=== PATIENT | male | born 1950 | race Caucasian/White ===

== ENCOUNTER → 2018-03-16 15:03 | Outpatient (REF) | payer MEDICARE, MEDICAID, SELFPAY ==
[2018-03-19 15:26] LABS: 6-monoacetylmorphine Not Detected ng/mL (Cutoff: 25); Amphetamines Negative ng/mL (Cutoff: 500); Barbiturates Negative ng/mL (Cutoff: 200); Benzodiazepines Negative ng/mL (Cutoff: 100); Buprenorphine Not Detected ng/mL (Cutoff: 5); Cocaine Negative ng/mL (Cutoff: 150); Codeine Not Detected ng/mL (Cutoff: 25); Comment Normal; Creatinine, U 248.7 mg/dL; Dihydrocodeine Not Detected ng/mL (Cutoff: 25); EDDP Not Detected ng/mL (Cutoff: 25); Fentanyl Not Detected ng/mL (Cutoff: 2); Hydrocodone Not Detected ng/mL (Cutoff: 25); Hydromorphone Not Detected ng/mL (Cutoff: 25); Hydromorphone-3-beta-glucuroni Not Detected ng/mL (Cutoff: 100); Meperidine Not Detected ng/mL (Cutoff: 25); Methadone Not Detected ng/mL (Cutoff: 25); Morphine Not Detected ng/mL (Cutoff: 25); N-desmethyltapentadol Not Detected ng/mL (Cutoff: 50); Naloxone Not Detected ng/mL (Cutoff: 25); Norbuprenorphine Not Detected ng/mL (Cutoff: 5); Norfentanyl Not Detected ng/mL (Cutoff: 2); Norhydrocodone Not Detected ng/mL (Cutoff: 25); Normeperidine Not Detected ng/mL (Cutoff: 25); Noroxycodone Not Detected ng/mL (Cutoff: 25); Noroxymorphone Not Detected ng/mL (Cutoff: 25); O-desmethyltramadol Not Detected ng/mL (Cutoff: 25); Phencyclidine Negative ng/mL (Cutoff: 25); Propoxyphene Not Detected ng/mL (Cutoff: 25); Specific Gravity 1.007; Tapentadol Not Detected ng/mL (Cutoff: 25); Tetrahydrocannabinol Presumptive Positive ng/mL (Cutoff: 50); Tramadol Not Detected ng/mL (Cutoff: 25); pH 7.5
[2018-03-19 15:48] LABS: Carboxy-THC Interpretation Positive.; Delta-9 CarboxyThc by LC-MS/MS 173 ng/mL (Cutoff:<3)
== END ==
LOC: LBN 15:03
PROVIDERS: PCP Family Medicine; Visit Provider Nurse Practitioner Family
DX: Z79.899 Other long term (current) drug therapy (principal); F12.20 Cannabis dependence, uncomplicated; G89.29 Other chronic pain
CPT/HCPCS: 80307; 80349; 80364

== ENCOUNTER 2019-04-02 09:13 | Outpatient (REF) | payer MEDICARE, MEDICAID, SELFPAY ==
[2019-04-02 20:01] LABS: ALT 22 U/L (16-63); AST 20 U/L (15-37); Alkaline Phosphatase 70 U/L (46-116); Anion Gap 8.6 mmol/L (3-11); BUN 8 mg/dL (7-18); Bilirubin, Total 0.5 mg/dL (0.2-1.0); CO2 31.4 mmol/L (21.0-32.0); CREATININE 0.91 mg/dL (0.70-1.30); Calcium 9.2 mg/dL (8.5-10.1); Chloride 103 mmol/L (98-107); Glucose 93 mg/dL (70-100); Potassium 4.3 mmol/L (3.5-5.1); Sodium 143 mmol/L (136-145); TSH (W/Ref FT4) 2.58 uIU/mL (0.36-3.74); Total Protein 7.8 g/dL (6.4-8.2); Vitamin B12 691 pg/mL (193-986)
== END 2019-04-02 09:33 ==
LOC: NCHCN 09:13
PROVIDERS: PCP Family Medicine; Visit Provider Family Medicine
DX: E03.9 Hypothyroidism, unspecified (principal); G62.9 Polyneuropathy, unspecified; R26.9 Unspecified abnormalities of gait and mobility; F10.20 Alcohol dependence, uncomplicated
CPT/HCPCS: 80053; 82607; 84443

== ENCOUNTER 2020-05-23 12:40 | Outpatient (REF) | payer MEDICARE, MEDICAID, SELFPAY ==
[2020-05-23 20:57] LABS: ALT 42 U/L (16-63); AST 25 U/L (15-37); Albumin 3.9 g/dL (3.4-5.0); Alkaline Phosphatase 48 U/L (46-116); Anion Gap 6.2 mmol/L (3-11); BUN 15 mg/dL (7-18); Bilirubin, Total 0.3 mg/dL (0.2-1.0); CO2 29.8 mmol/L (21.0-32.0); CREATININE 0.78 mg/dL (0.70-1.30); Chloride 106 mmol/L (98-107); Glucose 116 mg/dL (74-106); Potassium 4.2 mmol/L (3.5-5.1); Sodium 142 mmol/L (136-145); TSH (W/Ref FT4) 2.78 uIU/mL (0.36-3.74); Total Protein 7.1 g/dL (6.4-8.2)
[2020-05-24 21:33] LABS: PSA, Screening 0.9 ng/mL (0.0-6.5)
== END 2020-05-23 13:00 ==
LOC: NCHCN 12:40
PROVIDERS: PCP Family Medicine; Visit Provider Family Medicine
DX: E03.9 Hypothyroidism, unspecified (principal); F10.20 Alcohol dependence, uncomplicated; Z12.5 Encounter for screening for malignant neoplasm of prostate
CPT/HCPCS: 80053; 84153; 84402; 84403; 84443

== ENCOUNTER 2021-05-31 16:18 | Outpatient (REF) | payer MEDICARE, MEDICAID, SELFPAY ==
[2021-05-31 15:25] LABS: ALT 27 U/L (16-63); AST 22 U/L (15-37); Albumin 4.5 g/dL (3.4-5.0); Alkaline Phosphatase 49 U/L (46-116); Anion Gap 9.9 mmol/L (3-11); BUN 11 mg/dL (7-18); Bilirubin, Total 0.5 mg/dL (0.2-1.0); CO2 29.1 mmol/L (21.0-32.0); CREATININE 0.8 mg/dL (0.70-1.30); Calcium 9.7 mg/dL (8.5-10.1); Chloride 105 mmol/L (98-107); Glucose 106 mg/dL (74-106); Potassium 4.2 mmol/L (3.5-5.1); Sodium 144 mmol/L (136-145); TSH (W/Ref FT4) 1.79 uIU/mL (0.36-3.74)
== END 2021-05-31 16:19 | disposition home or self-care (01) ==
LOC: NCHCN 16:18
PROVIDERS: PCP Family Medicine; Visit Provider Family Medicine
DX: I10 Essential (primary) hypertension (principal); E03.9 Hypothyroidism, unspecified
CPT/HCPCS: 80053; 84443

== ENCOUNTER 2022-02-28 13:17 | Outpatient (REF) | payer OTHER, MEDICAID, SELFPAY ==
[2022-02-28 16:07] LABS: ALT 38 U/L (16-63); AST 26 U/L (15-37); Albumin 4.5 g/dL (3.4-5.0); Alkaline Phosphatase 50 U/L (46-116); Anion Gap 9.9 mmol/L (3-11); BUN 14 mg/dL (7-18); Bilirubin, Total 0.4 mg/dL (0.2-1.0); CO2 27.1 mmol/L (21.0-32.0); Calcium 9.5 mg/dL (8.5-10.1); Chloride 105 mmol/L (98-107); Cholesterol 319 mg/dL (<200); Glucose 115 mg/dL (74-106); Sodium 142 mmol/L (136-145); TSH (W/Ref FT4) 2.52 uIU/mL (0.36-3.74); Total Protein 8.2 g/dL (6.4-8.2); Triglyceride 100 mg/dL (<150)
[2022-02-28 16:18] LABS: Calculated LDL 223 mg/dL (<100); HDL Cholesterol 76 mg/dL (40-60)
[2022-03-01 18:24] LABS: PSA, Screening 0.6 ng/mL (<=6.5)
== END 2022-02-28 13:18 | disposition home or self-care (01) ==
LOC: NCHCN 13:17
PROVIDERS: PCP Family Medicine; Visit Provider Family Medicine
DX: E03.9 Hypothyroidism, unspecified (principal); E78.5 Hyperlipidemia, unspecified; I10 Essential (primary) hypertension; Z12.5 Encounter for screening for malignant neoplasm of prostate
CPT/HCPCS: 80053; 80061; 84153; 84443

== ENCOUNTER 2022-03-01 09:57 | Emergency (ER) | payer OTHER, MEDICAID, SELFPAY ==
[2022-03-01 10:13] VITALS: BP 168/90; PULSE 79; RESP 14; TEMP 37.1; O2SAT 97
--- NOTE | 2022-03-01 10:33 | ED.GENADUL_ITS ---
Discharge Plan Disposition Patient Disposition: HOME Condition: Improving Discharge Details Chief Complaint: Laceration Clinical Impression: Finger laceration Primary Care Provider: Alexus Medellin V ED Provider: Santino Castillo Home Meds and New Rx's Prescriptions: No Action venlafaxine [Effexor XR] 75 MG capsule,extended release 24hr 75 mg PO DAILY atenolol-chlorthalidone 1 EACH tablet 1 tab PO DAILY venlafaxine [Effexor XR] 150 MG capsule,extended release 24hr 150 mg PO DAILY thiamine HCl (vitamin B1) 100 MG tablet 100 mg PO DAILY levothyroxine [Synthroid] 25 MCG tablet 25 mcg PO DAILY nicotine (polacrilex) [Nicorette] 4 MG gum 4 mg Buccal PRN triamcinolone acetonide 80 GM ointment 80 gm Topical BID Label Comments: 0.1% External ointment. Apply to affected area BID fluticasone propionate 16 GM spray,suspension 50 mcg NS BID Label Comments: One [place] in each nostril BID ezetimibe [Zetia] 10 MG tablet 10 mg PO DAILY Nicotine [Nicoderm Cq] 1 EACH PATCH.TD24 7 mg Transdermal DAILY atenolol 25 mg tablet 1 tab PO DAILY Label Comments: TAKE 1 TABLET BY MOUTH EVERY EVENING escitalopram oxalate 10 mg tablet Label Comments: TAKE 1 TABLET BY MOUTH EVERY NIGHT AT BEDTIME thiamine mononitrate (vit B1) [Vitamin B-1 (mononitrate)] 100 mg tablet 1 tab PO DAILY Label Comments: TAKE ONE TABLET BY MOUTH ONCE DAILY Discharge Instructions Instructions: Finger Laceration (ED) Additional Instructions: Please keep wound clean and dry. Please return if you have any signs of worsening bleeding or signs of infection such as pus drainage redness fever or other abnormal symptoms Medical Decision Making 71-year-old male presents after lacerating his right index finger with a circular saw yesterday, this happened around 2 PM yesterday so patient is less than 24 hours out from injury, patient washed the wound and wrapped it at home; tetanus up-to-date within the last day. Wound is hemostatic no foreign body. Proximal and distal flexion intact, extension intact, sensation capillary refill intact. No evidence of active infection. Will anesthetized with digital block will irrigate wound and closed with absorbable sutures. Home care instructions return precautions given. No evidence of vascular neurologic tendonous or bony involvement 11: 17 patient is comfortably no acute distress. Digital block performed with 1% lidocaine, tourniquet applied, wound irrigated and explored, no foreign bodies, 2 simple interrupted sutures in the larger laceration, most distal laceration is more of a maceration/avulsion has been left open to heal by secondary intent. Home care instructions and return precautions given. HPI General Date/Time Provider Initiated Documentation: 03/01/22 10:17 . HPI Narrative: 71-year-old male presents after cutting his finger accidentally with a circular saw while performing some home renovations, 2 lacerations to pointer finger of his right hand. Patient had a tetanus shot yesterday prior to this event. Patient wrapped his finger for hemostasis and went to bed last night noticed that he had a large laceration Related Data Home Medications Medication Instructions Recorded Confirmed Nicotine [Nicoderm Cq] 7 mg transdermal DAILY 03/12/18 atenolol 50 mg-chlorthalidone 25 1 tab PO DAILY 03/12/18 03/01/22 mg tablet ezetimibe 10 mg tablet (Zetia) 10 mg PO DAILY 03/12/18 03/01/22 fluticasone propionate 50 50 mcg NS BID 03/12/18 mcg/actuation nasal spray,suspension levothyroxine 25 mcg tablet 25 mcg PO DAILY 03/12/18 03/01/22 (Synthroid) nicotine (polacrilex) 4 mg gum 4 mg buccal PRN 03/12/18 (Nicorette) thiamine HCl (vitamin B1) 100 mg 100 mg PO DAILY 03/12/18 tablet triamcinolone acetonide 0.025 % 80 gm topical BID 03/12/18 topical ointment venlafaxine 150 mg 150 mg PO DAILY 03/12/18 capsule,extended release 24 hr (Effexor XR) venlafaxine 75 mg capsule,extended 75 mg PO DAILY 03/12/18 release 24 hr (Effexor XR) atenolol 25 mg tablet 1 tab PO DAILY 03/01/22 03/01/22 escitalopram oxalate 10 mg tablet tab 03/01/22 03/01/22 thiamine mononitrate (vit B1) 100 1 tab PO DAILY 03/01/22 03/01/22 mg tablet (Vitamin B-1 (mononitrate)) Allergies Allergy/AdvReac Type Severity Reaction Status Date / Time atorvastatin calcium Allergy Intermediate Unverified 03/01/22 10:35 [From Lipitor] bupropion HCl Allergy Mild Unverified 03/01/22 10:35 [From Wellbutrin] fluoxetine HCl [From Prozac] Allergy Mild Unverified 03/01/22 10:35 paroxetine HCl [From Paxil] Allergy Mild Unverified 03/01/22 10:35 sertraline HCl [From Zoloft] Allergy Mild Unverified 03/01/22 10:35 simvastatin [From Zocor] Allergy Mild Unverified 03/01/22 10:35 General Stated Complaint: Laceration ANAMIKA: 4 Review of Systems Narrative: Review of Systems Constitutional: negative Eyes: negative ENT: negative Cardiovascular: negative Respiratory: negative Gastrointestinal: negative : negative Musculoskeletal: negative Skin: Finger laceration Neurologic: negative Psych: negative PFSH All Active Problems (Updated 03/01/22 @ 11:19 by Santino Castillo MD) Finger laceration (Acute) Medical History (Updated 03/01/22 @ 11:19 by Santino Castillo MD) Arthralgia Ataxia Depression Ego-dystonic sexual orientation Elevated TSH ETOHism Gait disturbance History of tobacco use HTN (hypertension) Hyperlipidemia Hypothyroidism Mood disorder Pectus excavatum Scoliosis Shoulder dislocation Skin lesion Sleep apnea Family History Mother Alzheimers disease Arthritis Hyperlipidemia Mental disorder Breast cancer Father Diabetes Lung cancer Other Alcohol abuse Heart disease Social History Smoking/Tobacco Use Status: Current every day Tobacco Type: smokeless tobacco Smoking risk assessment performed?: Yes Alcohol Intake: current Alcohol Intake frequency: 3 or more drinks per day Alcohol type: beer Drug use: Never Do you feel safe at home: Yes Do you feel safe in your relationship?: Yes Exam Narrative Exam Narrative: Physical Examination General: alert, awake, cooperative, resting comfortably, no acute distress HEENT: normocephalic, atraumatic; PERRL, EOM intact, conjunctiva normal; no nasal discharge; moist mucous membranes, oral and pharyngeal mucosa normal, tolerating secretions Neck: supple, trachea midline; full ROM Chest: normal to inspection Respiratory: normal respiratory effort, speaking in full sentences, clear to auscultation, no wheezing, rales or rhonchi Cardiac: regular rate, regular rhythm, S1S2 intact, no murmurs rubs or gallops GI: abdomen soft, non-tender, non-distended; no palpable mass or hepatosplenomegaly Skin: no lesions, rashes or trauma appreciated Neuro: AAOx3, normal speech, moving all extremities Extremities: right hand: 2 cm gaping laceration to index finger hemostatic no foreign body, no evidence of tendon or vascular or neurologic structure involvement, patient has full flexion both proximally and distally as well as full extension, sensation intact and capillary refill intact. Smaller sub cm non gaping laceration to distal tip Psych: Appropriate mood and affect Course Vital Signs Vital signs: Vital Signs Temperature 37.1 C 03/01/22 10:13 Pulse 79 03/01/22 10:13 Respiratory Rate 14 03/01/22 10:13 Blood Pressure 168/90 H 03/01/22 10:13 Pulse Oximetry 97 03/01/22 10:13 Temperature 37.1 C 03/01/22 10:13 Temperature Source Temporal Artery Scan 03/01/22 10:13 Pulse 79 03/01/22 10:13 Respiratory Rate 14 03/01/22 10:13 Respiratory Effort Non-Labored 03/01/22 10:17 Blood Pressure 168/90 H 03/01/22 10:13 Blood Pressure Position Sitting 03/01/22 10:13 Pulse Oximetry 97 03/01/22 10:13 Oxygen Delivery Method Room Air 03/01/22 10:13 Oxygen Flow Rate 0 03/01/22 10:13 Pain Level 1 03/01/22 10:13 Procedures Laceration Laceration 1: Side (If applicable): right Size (cm): 2 Description: linear Depth: simple, single layer Local Anesthetic: Lidocaine 1% Amount of anesthesia used (mL): 2 Pre-repair: irrigated extensively and deep structures intact Skin layer closed with: vicryl Size (cm): 5-0 Number of sutures: 2 Technique: simple, interrupted Subcutaneous layer closed with: vicryl Technique: other (Most distal laceration subcentimeter in size is more of a maceration was left open to heal by secondary intent) PAWSS Have you Been Recently Intoxicated or Drunk Within the Last 30 days?: Yes Have you Ever Experienced Previous Episodes of Alcohol Withdrawal?: Yes Have you ever Experienced Withdrawal Seizures?: Yes Have you ever Experienced Delirium Tremens(DT)s?: Yes Have you ever undergone Alcohol Rehabilitation Treatment (i.e, inpt ot ou tpatient treatment programs)?: Yes Have you ever Experienced Blackouts?: No Have you ever Combined Alcohol with other Downers within the last 90 days?: No Have you ever Combined Alcohol with any other Substance of Abuse during the last 90 days?: No Positive Blood Alcohol level on Presentation? [PCS.BAL]: No Evidence of Increased Autonomic Activity (i.e. HR>120, tremor, sweating, agitation, nausea)?: No Result: 5
== END 2022-03-01 11:25 | disposition home or self-care (01) ==
PROVIDERS: Emergency Provider Emergency Medicine; PCP Family Medicine
DX: S61.210A Laceration without foreign body of right index finger without damage to nail, initial encounter (principal); I10 Essential (primary) hypertension; F17.290 Nicotine dependence, other tobacco product, uncomplicated; W31.2XXA Contact with powered woodworking and forming machines, initial encounter; Y92.009 Unspecified place in unspecified non-institutional (private) residence as the place of occurrence of the external cause
CPT/HCPCS: 12001; 99281; 99282

== ENCOUNTER 2023-03-06 13:17 | Outpatient (REF) | payer OTHER, MEDICAID, SELFPAY ==
[2023-03-06 15:55] LABS: HCT 40.4 % (40.0-50.0); HGB 13.6 g/dL (13.5-17.5); MCHC 33.7 % (32.0-36.0); MCV 98 fL (80-95); Platelet Count 229 10^3/uL (130-400); RBC 4.12 10^6/uL (4.36-5.78); RDW 12.6 % (11.8-14.1); RDW-SD 45.4 fL; WBC 6.05 10^3/uL (4.4-10.8)
[2023-03-06 17:03] LABS: ALT 44 U/L (16-63); AST 29 U/L (15-37); Albumin 4.2 g/dL (3.4-5.0); Alkaline Phosphatase 67 U/L (46-116); BUN 7 mg/dL (7-18); Bilirubin, Total 0.5 mg/dL (0.2-1.0); CREATININE 0.9 mg/dL (0.70-1.30); Calcium 9.7 mg/dL (8.5-10.1); Calculated LDL 196 mg/dL (<100); Chloride 104 mmol/L (98-107); Cholesterol 295 mg/dL (<200); Estimated GFR 90.18 (mL/min/1.73m2); Glucose 104 mg/dL (74-106); HDL Cholesterol 53 mg/dL (40-60); Potassium 4.5 mmol/L (3.5-5.1); Sodium 141 mmol/L (136-145); TSH (W/Ref FT4) 2.83 uIU/mL (0.36-3.74); Total Protein 8.3 g/dL (6.4-8.2); Triglyceride 230 mg/dL (<150); Vitamin B12 625 pg/mL (193-986)
[2023-03-06 17:12] LABS: Hemoglobin A1C 5.4 % (<5.7)
== END 2023-03-06 13:18 | disposition home or self-care (01) ==
LOC: NCHCN 13:17
PROVIDERS: PCP Family Medicine; Visit Provider Family Medicine
DX: E03.9 Hypothyroidism, unspecified (principal); E78.5 Hyperlipidemia, unspecified; I10 Essential (primary) hypertension; F10.20 Alcohol dependence, uncomplicated; Z79.899 Other long term (current) drug therapy
CPT/HCPCS: 80053; 80061; 85027; 82607; 83036; 84443

== ENCOUNTER 2023-07-04 15:41 | Outpatient (REF) | payer OTHER, MEDICAID, SELFPAY ==
[2023-07-04 15:23] LABS: AST 31 U/L (15-37); Calculated LDL 160 mg/dL (<100); Cholesterol 258 mg/dL (<200); HDL Cholesterol 61 mg/dL (40-60); Triglyceride 187 mg/dL (<150)
[2023-07-04 16:03] LABS: Creatine Kinase 148 U/L (39-308)
[2023-07-06 23:35] LABS: Anaplasma phagocytophilum Negative (Negative); B. miyamotoi PCR Negative (Negative); Babesia divergens/MO-1 Negative (Negative); Babesia duncani Negative (Negative); Babesia microti Negative (Negative); Ehrlichia chaffeensis Negative (Negative); Ehrlichia ewingii/canis Negative (Negative); Ehrlichia muris eauclairensis Negative (Negative)
[2023-07-07 10:21] LABS: Lyme Ab w Rflx to Lyme Confirm Negative (Negative)
== END 2023-07-04 15:42 | disposition home or self-care (01) ==
LOC: NCHCN 15:41
PROVIDERS: PCP Family Medicine; Visit Provider Family Medicine
DX: E78.5 Hyperlipidemia, unspecified (principal); I10 Essential (primary) hypertension; L98.8 Other specified disorders of the skin and subcutaneous tissue
CPT/HCPCS: 80061; 82550; 87798; 84450; 86618

== ENCOUNTER → 2023-10-23 14:35 | Outpatient (CLI) | payer OTHER, MEDICAID, SELFPAY ==
--- NOTE | 2023-10-23 | DI.RAD_ITS ---
Exam(s) XR LUMBAR SPINE COMPLETE EXAM: XR LUMBAR SPINE COMPLETE CLINICAL HISTORY: LOW BACK PAIN M54.50 PAIN MOSTLY OVER THE RSI JOINT. TECHNIQUE: 2D digital imaging was performed. Five views. COMPARISON: No exams were available for comparison FINDINGS: BONES: No fracture or destructive lesion. Vertebral body heights are maintained. Facet degenerative changes noted at L4-5 and L5-S1. Mild spurring at the SI joints. No evidence of widening or bony er osions. DISKS: Intervertebral disc spaces are maintained. Endplate osteophytes greater in the lower thoracic region. ALIGNMENT: Mild dextroscoliosis in lumbar region. Levoscoliosis noted at the thoracolumbar junction. SOFT TISSUE: Normal. IMPRESSION: Mild degenerative changes. DATA REPOSITORY: RADIATION DOSE DELIVERED:
== END ==
PROVIDERS: PCP Family Medicine; Visit Provider Physician Assistant Medical
DX: M46.96 Unspecified inflammatory spondylopathy, lumbar region (principal)
CPT/HCPCS: 72110

== ENCOUNTER 2024-01-16 12:27 | Outpatient (REF) | payer OTHER, MEDICAID, SELFPAY ==
[2024-01-16 16:06] LABS: HCT 38.7 % (40.0-50.0)
[2024-01-16 16:31] LABS: ALT 26 U/L (16-63); AST 19 U/L (15-37); Albumin 3.9 g/dL (3.4-5.0); Alkaline Phosphatase 89 U/L (46-116); Anion Gap 10.8 mmol/L (3-11); BUN 9 mg/dL (7-18); Bilirubin, Total 0.3 mg/dL (0.2-1.0); CO2 28.2 mmol/L (21.0-32.0); CREATININE 0.8 mg/dL (0.70-1.30); Calcium 9.3 mg/dL (8.5-10.1); Chloride 104 mmol/L (98-107); Estimated GFR 92.87 (mL/min/1.73m2); Glucose 108 mg/dL (74-106); Potassium 4.3 mmol/L (3.5-5.1); Sodium 143 mmol/L (136-145); TSH (W/Ref FT4) 3.01 uIU/mL (0.36-3.74); Total Protein 7.7 g/dL (6.4-8.2)
== END 2024-01-16 12:28 | disposition home or self-care (01) ==
LOC: NCHCN 12:27
PROVIDERS: PCP Family Medicine; Visit Provider Family Medicine
DX: E03.9 Hypothyroidism, unspecified (principal); I10 Essential (primary) hypertension; E78.5 Hyperlipidemia, unspecified
CPT/HCPCS: 80053; 84443; 85014; 85018

== ENCOUNTER 2024-02-16 03:45 | Outpatient (CLI) | payer OTHER, MEDICAID, SELFPAY ==
[2024-02-16 14:05] LABS: HCT 38.6 % (40.0-50.0); MCH 32.8 pg (27.0-33.0); MCHC 33.7 % (32.0-36.0); MCV 98 fL (80-95); MPV 10.4 fL (8.0-11.0); Platelet Count 209 10^3/uL (130-400); RBC 3.96 10^6/uL (4.36-5.78); RDW 12.2 % (11.8-14.1); WBC 6.37 10^3/uL (4.4-10.8)
[2024-02-16 14:15] LABS: Hemoglobin A1C 5.8 % (<5.7)
[2024-02-16 14:45] LABS: AST 26 U/L (15-37); Calculated LDL 114 mg/dL (<100); Cholesterol 217 mg/dL (<200); Folate 18.9 ng/mL (8.6-20.0); HDL Cholesterol 49 mg/dL (40-60); Triglyceride 270 mg/dL (<150); Vitamin B12 615 pg/mL (193-986)
[2024-02-16 14:55] LABS: Creatine Kinase 203 U/L (39-308)
[2024-02-19 23:02] LABS: Thiamine (Vitamin B1), WB 189 nmol/L (70-180)
== END 2024-02-16 03:46 | disposition home or self-care (01) ==
LOC: LBO 03:45
PROVIDERS: PCP Family Medicine; Visit Provider Family Medicine
DX: Z00.00 Encounter for general adult medical examination without abnormal findings (principal)
CPT/HCPCS: 36415; 80061; 82550; 85027; 82607; 82746; 83036; 84425; 84450

== ENCOUNTER 2025-02-24 15:42 | Outpatient (REF) | payer MEDICARE, MEDICAID, SELFPAY ==
[2025-02-24 15:38] LABS: HCT 38.2 % (40.0-50.0); HGB 12.8 g/dL (13.5-17.5); MCH 33.5 pg (27.0-33.0); MCHC 33.5 % (32.0-36.0); MCV 100 fL (80-95); MPV 10.8 fL (8.0-11.0); Platelet Count 230 10^3/uL (130-400); RBC 3.82 10^6/uL (4.36-5.78); RDW 12.0 % (11.8-14.1); RDW-SD 43.9 fL; WBC 5.17 10^3/uL (4.4-10.8)
[2025-02-24 16:07] LABS: ALT 42 U/L (16-63); AST 25 U/L (15-37); Albumin 4.2 g/dL (3.4-5.0); Alkaline Phosphatase 57 U/L (46-116); Anion Gap 9.5 mmol/L (3-11); BUN 10 mg/dL (7-18); Bilirubin, Total 0.4 mg/dL (0.2-1.0); CO2 28.5 mmol/L (21.0-32.0); Calcium 9.3 mg/dL (8.5-10.1); Chloride 105 mmol/L (98-107); Estimated GFR 89.07 (mL/min/1.73m2); Glucose 111 mg/dL (74-106); Potassium 4.4 mmol/L (3.5-5.1); Sodium 143 mmol/L (136-145); TSH (W/Ref FT4) 2.42 uIU/mL (0.36-3.74); Total Protein 7.7 g/dL (6.4-8.2)
[2025-02-24 22:47] LABS: PSA, Screening 0.7 ng/mL (<=6.5)
== END 2025-02-24 15:43 | disposition home or self-care (01) ==
LOC: NCHCN 15:42
PROVIDERS: PCP Family Medicine; Visit Provider Family Medicine
DX: Z12.5 Encounter for screening for malignant neoplasm of prostate (principal); I10 Essential (primary) hypertension; Z13.0 Encounter for screening for diseases of the blood and blood-forming organs and certain disorders involving the immune mechanism; E03.9 Hypothyroidism, unspecified
CPT/HCPCS: 80053; 84153; 85027; 84443